=== PATIENT | male | born 1985 | race Caucasian/White ===

== ENCOUNTER 2025-03-19 20:48 | Emergency (ER) | payer BC ==
--- NOTE | 2025-03-19 21:01 | ELECTROCARDIOGRAPH REPORT ---
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
--- NOTE | 2025-03-19 21:10 | Physician Documentation ---
History of Present Illness ~ Chief Complaint: Hypertension Stated Complaint: HIGH BP Time Seen by MD: 20:58 Source: patient Exam Limitations: no limitations HPI Patient has a 39-year-old male that presents to the emergency department for evaluation of hypertension that has progressed over the last three weeks. Patient reports that he used to take high blood pressure medication but has not taken it for approximately a year. Patient reports headaches feeling anxious and jittery over the last couple of days to weeks. Patient reports that he recently had a family member that was in his 40s and of a heart attack and feels like he may be experiencing stress due to this. Patient denies excessive caffeine intake. Patient denies any illicit drug use. Patient denies any other symptoms at this time. Medication Reconciliation Allergies: Coded Allergies: No Known Allergies (Unverified , 03/19/25) Review of Systems ROS As stated above in the HPI, otherwise all systems are reviewed and negative. Physical Exam Vital Signs: Temperature: 96.8, Source: Temporal, Heart Rate: 88, Respiratory Rate: 15, BP: 206/145, Pulse Oximetry: 98 Physical Exam VITALS: Reviewed and as above. GENERAL: Alert, no apparent distress. HEENT: Normocephalic, atraumatic, PERRL, EOMI, dry mucosa, no erythema RESPIRATORY: Lungs clear, normal breath sounds, no respiratory distress. CHEST: No accessory muscle use, no retractions CV: Regular rate, rhythm, no edema, no murmur, No: JVD, hypertension noted. GI: Soft, non-tender, bowels sounds present, no rebound, guarding, or rigidity BACK: No CVA tenderness, or swelling MUSCULOSKELETAL No deformities, no edema SKIN: Warm and dry, no rash NEURO: Oriented x4, No motor or sensory deficit PSYCH: Normal mood and affect, no agitation Progress Results/Orders Results/Orders Orders - YANG WESTON MD Chest,Single View (03/19/25 20:55) Monitor (03/19/25 20:55) Saline Lock (03/19/25 20:55) Oxygen (03/19/25 20:55) Ct Head (03/20/25 01:06) Completed Orders - YANG WESTON MD Chest,Single View (03/19/25 20:55) Cbc/Diff (03/19/25 20:55) BMP (03/19/25 20:55) PBNP (03/19/25 20:55) Electrocardiogram (03/19/25 20:55) Hs Troponin I W Calculations (03/19/25 20:55) Hs Troponin I W Calculations (03/19/25 22:55) Hs Troponin I W Calculations (03/19/25 23:55) Ct Head (03/20/25 01:06) Medications Received in ER Medications (Trade) Dose Ordered Sig/Clara Route PRN Reason Start Time Stop Time Status Last Admin Dose Admin (Catapres tablet) 0.1 mg ONCE ONCE PO 03/19/25 21:10 03/19/25 21:11 DC 03/19/25 21:15 0.1 MG (Ativan inj) 1 mg ONCE ONCE IV 03/19/25 22:05 03/19/25 22:30 DC 03/19/25 22:43 1 MG (Tylenol tablet) 1,000 mg ONCE ONCE PO 03/20/25 01:20 03/20/25 01:21 DC 03/20/25 01:29 975 MG Vital Signs 03/19/25 03/19/25 03/19/25 03/19/25 20:52 21:16 21:50 22:20 Temp 96.8 96.8 Pulse 88 87 74 74 Resp 15 16 14 14 B/P (MAP) 206/145 164/101 (122) 194/118 (143) 163/103 (123) Pulse Ox 98 98 98 96 O2 Flow Rate 0 0 0 03/19/25 03/19/25 03/19/25 03/19/25 22:43 22:44 23:15 23:45 Pulse 79 73 59 Resp 14 14 14 14 B/P (MAP) 155/93 (113) 151/85 (107) 133/73 (93) Pulse Ox 94 93 94 O2 Flow Rate 0 0 0 03/20/25 03/20/25 00:17 00:33 Pulse 53 Resp 14 B/P (MAP) 135/81 (99) Pulse Ox 94 O2 Flow Rate 0 Laboratory Tests Test 03/19/25 21:07 03/19/25 22:56 03/20/25 00:43 White Blood Count 9.5 Red Blood Count 5.09 Hemoglobin 15.3 Hematocrit 45.4 Mean Corpuscular Volume 89.1 Mean Corpuscular Hemoglobin 30.1 Mean Corpuscular Hemoglobin Concent 33.8 Red Cell Distribution Width 12.9 Platelet Count 285 Mean Platelet Volume 7.9 Neutrophils (%) (Auto) 57.1 Lymphocytes (%) (Auto) 28.3 Monocytes (%) (Auto) 9.2 Eosinophils (%) (Auto) 4.5 Basophils (%) (Auto) 0.9 Neutrophils # (Auto) 5.4 Lymphocytes # (Auto) 2.7 Monocytes # (Auto) 0.9 Eosinophils # (Auto) 0.4 Basophils # (Auto) 0.1 CBC Comment Sodium Level 139 Potassium Level 3.7 Chloride Level 103 Carbon Dioxide Level 25.3 Anion Gap 11 Blood Urea Nitrogen 22 H Creatinine 1.04 Estimated GFR/1.73 m2 80 BUN/Creatinine Ratio 21.2 H Glucose Level 122 H Calcium Level 9.2 Troponin I High Sensitivity 9 10 9 Pro-B-Type Natriuretic Peptide < 30 Albumin 4.4 Chemistry Comments Troponin I High Sens Percent Delta 11 10 Troponin I Hi Sens Absolute Change 1 -1 EKG/XRAY/CT/US/VASC/MRI EKG : Intepreting Monitor?: Yes Indication: chest pain EKG: NSR EKG Blocks: none [place]: normal Hypertrophy: none Additional Comment As interpreted by me, NSR with rate of 70 with normal intervals and axis. No signs of acute myocardial injury or ischemia. Chest X-Ray : Interpreted By: self Views: 1 VIEW Lungs: normal Mediastinum: normal Ribs/Bones: normal Abdomen: normal Impression: no acute disease Additional Comments As interpreted by me, there are no signs to suggest an acute cardiopulmonary process. Medical Decision Making Findings 39-year-old male that presents for hypertension and headache. Patient later reported chest discomfort. Physical exam and diagnostics are consistent with acute anxiety reaction this time. Due to negative troponin 12 lead laboratory diagnostics, I have low suspicion for acute cardiopulmonary process including ACS, PE, or thoracic aortic dissection. Calculated heart score of one at this time. The patient's blood pressure headache chest discomfort and symptoms reduced after administration of Ativan. The patient denies any ingestions or any other medical complaints. No evidence of alcohol withdrawal symptoms. Given history and physical presentation not consistent with overt toxidrome, ingestion. Presentation not consistent with a medical emergency at this time. No acute indication for psychiatric consultation (without SI/HI, AH/VH). Cautious return precautions discussed with full understanding. Differential Dx:Considerations: Include CHF, Include HTN, essential, Include HTN, accelerated, Include HTN, malignant, Include HTN, encephalopathy, Include medical noncompliance, Include medication withdrawal, Include pulmonary edema, Include renal failure, Include -induced, Include other Additional Information While here in the ED, he remained hemodynamically normal with ABC's intact and in NAD. He is afebrile and nontoxic. I reviewed his EKG and it shows NSR with a rate of 70 and without signs suggestive and acute myocardial injury or ischemia. TnI normal. I reviewed his CXR and there are no signs suggestive of an acute cardiopulmonary process. Lytes normal. No leukocytosis or left shift. Have low clinical suspicion for an acute infectious process. He c/o a LEBLANC while here in the ED. With his significant HTN on arrival, a NCCT brain was obtained to further evaluate. I reviewed his CT and it was without signs of an acute bleed, space-occupying lesion, cerebral edema, or a large territorial infarct. He was treated with Lorazepam for his anxiety with improvement in symptoms and hemodynamics. He had serial exams and is now feeling significantly better. He is PERC negative. HEART score 1 giving him a < 2% chance of a MACE at 6-weeks. No clear indication for admission. He will be discharged home with outpatient follow-up. Given follow-up and return instructions. He voiced understanding and agreement with d/c instructions. Departure Disposition: 01 HOME / SELF CARE / HOMELESS Impression: Primary Impression: Benign hypertension Additional Impression: Anxiety Condition: Stable Discharge Instructions: Hypertension, Adult, [id number] Referrals: NO PRIMARY CARE PROVIDER (PCP) Education Educated: Patient Educated regarding: diagnosis, treatment, need for follow up Signature Scribe Signature: N/A Attestation: N/A ALBARO JAIMES Mar 19, 2025 21:10 YANG WESTON MD Mar 20, 2025 02:25
[2025-03-19 21:16] VITALS: TEMP 96.8
[2025-03-19 21:22] LABS: MEAN PLATELET VOLUME 7.9 FL (7.4-10.4); RED CELL DISTRIBUTION WIDTH 12.9 % (11.5-14.5)
[2025-03-19 21:45] LABS: CREATININE 1.04 MG/DL (0.60-1.10); PRO BRAIN NATRIURETIC PEPTIDE < 30 PG/ML (0-125); TOTAL CARBON DIOXIDE 25.3 MMOL/L (24-32); eGFR 80 ML/MIN
--- NOTE | 2025-03-20 00:29 | RADIOLOGY REPORT ---
CHEST RADIOGRAPH Indication: CP Technique: Single frontal view of the chest was obtained COMPARISON: None FINDINGS: Lines and Tubes: None Lungs: Clear Pleura: No effusion. No pneumothorax. Cardiomediastinal contours: Unremarkable Bones: Unremarkable IMPRESSION: 1. No acute disease.
[2025-03-20] MEDS: acetaminophen 1,000mg/100ml IV 100 ML IV SCH (01:17)
--- NOTE | 2025-03-20 02:00 | RADIOLOGY REPORT ---
EXAM: CT CT HEAD INDICATION: Headache TECHNIQUE: CT of the head without intravenous contrast. Radiation Dose : 1. Head: CT Dose: CTDI volume is 64.88 mGy. Dose-length product is 1158.8 mGy*cm The dose indicators for CT are the volume Computed Tomography (CT) Dose Index (CTDIvol) and the Dose Length Product (DLP), and are measured in units of mGy and mGy-cm, respectively. These indicators are not patient dose, but values generated from the CT scanner acquisition factors. The report includes radiation exposure data for exposures received during this examination. COMPARISON: None FINDINGS: There is no evidence of acute intracranial hemorrhage, extra-axial collection, mass effect, midline shift, herniation or hydrocephalus. The ventricles, sulci and cisterns are age appropriate. The ralph-white differentiation is intact. Bilateral ethmoid mucosal sinus disease. The remaining visualized paranasal sinuses are clear. The right mastoid air cells are clear. Chronic appearing left mastoid air cell scarring noted. The surrounding soft tissues and osseous structures are unremarkable. IMPRESSION: 1. No acute intracranial abnormality. Radiation optimization: All CT scans at this facility use at least one of these dose optimization techniques: automated exposure control mA and/or kV adjustment per patient size (includes targeted exams where dose is matched to clinical indication) or iterative reconstruction.
--- NOTE | 2025-03-20 02:27 | DISCHARGE PACKET ---
Patient Discharge Instructions Discharge Instructions Please follow-up with your family physician tomorrow and return to the Emergency Department if there are any additional concerns. YANG WESTON MD Mar 20, 2025 02:27
[2025-03-20 02:42] VITALS: BP 132/77; PULSE 59; RESP 16; O2SAT 99
== END 2025-03-20 02:44 | disposition home or self-care (01) ==
LOC: ER 20:49
DX: I10 Essential (primary) hypertension (principal); F41.9 Anxiety disorder, unspecified; I25.2 Old myocardial infarction; R51.9 Headache, unspecified
CPT/HCPCS: 36415; 70450; 71045; 80048; 83880; 84484; 85025; 93005; 96374; 99285; J2060

== ENCOUNTER 2025-03-20 12:32 | Emergency (ER) | payer BC | END 2025-03-20 12:51 | disposition left against medical advice (07) | LOC: ER 12:32 | DX: I10 Essential (primary) hypertension (principal); Z53.21 Procedure and treatment not carried out due to patient leaving prior to being seen by health care provider ==